=== PATIENT | female | born 1995 | race Caucasian/White ===

== ENCOUNTER 2016-10-12 18:15 | Emergency (ER) | payer OTHER ==
[~2016-10-12] VITALS: Ht 172.7 cm; Wt 54.6 kg
[~2016-10-12 18:15] MED LIST: AMIT25TA9 PO; ASPI81TA28 PO; LISI-789 PO
[2016-10-12 18:25] VITALS: TEMP 36.3; Ht 172.7 cm; Wt 54.6 kg
[2016-10-12 19:06] VITALS: BP 119/86; PULSE 81; O2SAT 97
[2016-10-12] MEDS ORDERED: NAPR-1169 PO (19:14)
--- NOTE | 2016-10-12 19:22 | DIAGNOSTIC IMAGING REPORT ---
HEAD CT NONCONTRAST CT DOSE: 537.48 mGy.cm HISTORY: headache. history of poss cavernous hemangioma TECHNIQUE: Multiaxial CT images of the head were performed without the use of intravenous contrast. Automated exposure control was utilized for this study. Comparison: Brain MRI 05/01/2016. Head CT 05/01/2016. Findings: The paranasal sinuses and mastoid air cells are clear. The calvarium and skull base are intact. The ventricles and sulci are within normal limits. There is no mass, hematoma, midline shift, or acute infarct. Impression: No significant change compared to the prior study. No acute intracranial abnormality. Electronically signed by: Дмитрий Ovalles M.D. 10/12/2016 7:21 PM Dictated Date/Time: 10/12/2016 7:17 PM
--- NOTE | 2016-10-12 21:47 | EMERGENCY ROOM VISIT NOTE ---
History Report prepared by Yuliet: Jessie Martinez Under the Supervision of: Dr. Donato Ayala M.D. First contact with patient: 18:31 Chief Complaint: HEAD PAIN Stated Complaint: LOW HEADACHE,PT HAS CAVERNOMAS,RISK FOR HEMORRHAGE History of Present Illness The patient is a 20 year old female who presents to the Emergency Room with complaints of a resolved headache beginning just [employer]SEM[employer]. The patient states that she has a history of cavernomas. She reports that she has a history of migraines and gets headaches daily but her headache today was different than her previous. She notes that her headache today started in the back of her head and radiated to the top. The patient reports that it was burning and pulsing before she took Naproxen and her headache resolved. She complains of neck stiffness that is now resolved. Pt denies trauma, fevers, chills, visual changes , thunder clap or sudden onset of headache, ear problems/hearing loss, sinus congestion/recent infection, chest pain, breathing difficulties, vomiting, abdominal pain, urinary symptoms, numbness, weakness, lymphadenopathy, rash, or other complaints. 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 She reports that she takes Aspirin for her clotting disorder. 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 A total of ten systems were reviewed and were otherwise negative. Past Medical & Surgical Medical Problems: (1) Cavernoma (2) Double inlet left ventricle (3) Migraines Surgical Problems: (1) S/P Fontan procedure (2) S/P thais-Fontan operation (3) S/P PA (pulmonary artery) banding Family History Diabetes mellitus Social History Smoking Status: Never Smoker Marital Status: single Occupation Status: employed, student Current/Historical Medications Scheduled Amitriptyline Hcl (Elavil), 50 MG PO HS Aspirin (Aspirin Ec), 81 MG PO DAILY Lisinopril (Zestril), 2.5 MG PO DAILY Scheduled PRN Naproxen (Naprosyn), 500 MG PO WK PRN for Pain Allergies Coded Allergies: No Known Allergies (Unverified , 05/01/16) Physical Exam Vital Signs Date Time Temp Pulse Resp B/P (MAP) Pulse Ox O2 Delivery O2 Flow Rate FiO2 10/12/16 19:06 81 18 119/86 97 Room Air 10/12/16 18:25 36.3 91 18 127/8 93 Room Air Physical Exam GENERAL: Awake, alert, well appearing, no distress HENT: Normocephalic, atraumatic. TM's normal. Oropharynx unremarkable. EYES: PERRL. EOMI. Normal conjunctiva. Sclera non-icteric. NECK: Supple. No nuchal rigidity. FROM. No JVD or bruit. RESPIRATORY: CTA CARDIAC: RRR. Holosystolic murmur. ABDOMEN: Soft, non distended. No tenderness to palpation. No rebound or guarding. No masses. RECTAL: Deferred. MUSCULOSKELETAL: Unremarkable. No edema. No discoloration. Gross motor strength symmetric. NEURO: Cranial nerves 2-12 grossly intact. Normal sensorium. No sensory or motor deficits noted. Speech normal. No pronator drift. SKIN: No rash or jaundice noted. LYMPH: No adenopathy. Medical Decision & Procedures ER Provider Diagnostic Interpretation: CT results as stated below per my review and radiologist interpretation HEAD CT NONCONTRAST Comparison: Brain MRI 05/01/2016. Head CT 05/01/2016. Findings: The paranasal sinuses and mastoid air cells are clear. The calvarium and skull base are intact. The ventricles and sulci are within normal limits. There is no mass, hematoma, midline shift, or acute infarct. Impression: No significant change compared to the prior study. No acute intracranial abnormality. Electronically signed by: Дмитрий Ovalles M.D. 10/12/2016 7:21 PM Dictated Date/Time: 10/12/2016 7:17 PM ED Course 1839: The patient was evaluated in room C8. A complete history and physical exam was performed. 1933: I reevaluated and updated the patient. 1944: I reevaluated the patient. Discussed results and discharge instructions: She verbalized understanding and agreement. The patient is ready for discharge. Medical Decision Medication Reconciliation: I attest that I have personally reviewed the patient' s current medication list Blood pressure screening: Patient was found to have normal blood pressure on screening and does not require follow-up. Prior records/ancillary studies reviewed. Triage Nursing notes reviewed and agree them. The patient's history was concerning for headache. Differential diagnosis: Etiologies such as migraine headache, meningitis, sinusitis, CO exposure, ICH, SAH, infection, tumor, headache, sinus thrombosis, arterial dissection, as well as others were entertained. Physical examination findings: As above. Non-focal. ER treatment provided: No medications were given as the patient had resolution of her headache. On reassessment the patient felt better. Diagnostics interpreted by me: Imaging studies: CAT scan as above Clinically the patient is doing very well. Her CT scan does not show any acute abnormalities. As she has no symptoms at this time I do not believe she needs blood work, MRI, or lumbar puncture. She is neurologically intact. I discussed conservative management with the patient and she was in agreement. I gave my usual and customary discussion regarding this issue. By the evaluation outlined above emergent etiologies such as meningitis, sinusitis, CO exposure, ICH, SAH, infection, temporal arteritis, tumor, sinus thrombosis, arterial dissection, as well as others were deemed relatively unlikely. The patient was informed about the findings as listed above. All questions were answered and she was pleased with the treatment. Return instructions were outlined and the patient was discharged in stable condition. Outpatient prescription management: None Referral: The patient was referred back to her primary care physician for follow-up in 2 to 3 days for a recheck of the current condition. Impression Primary Impression: Headache Scribe Attestation The scribe's documentation has been prepared under my direction and personally reviewed by me in its entirety. I confirm that the note above accurately reflects all work, treatment, procedures, and medical decision making performed by me. Departure Information Dispostion Home / Self-Care Referrals No Doctor, Assigned (PCP) Forms HOME CARE DOCUMENTATION FORM, IMPORTANT VISIT INFORMATION, WORK / SCHOOL INSTRUCTIONS Patient Instructions My [facility] Additional Instructions HEADACHE INSTRUCTIONS: Rest today in a quiet, peaceful, dark environment and get a full 8-10 hrs of sleep tonight. Avoid loud noises, smoke/smoking, alcohol, bright lights, stress, or physical exertion today to minimize the chance the headache may return. Continue current medications. Acetaminophen(Tylenol) may be used for fever or pain. Use 1000mg every six hours as needed. Avoid using more than 4000mg in a 24 hour period. Return to the ER for passing out, worsening headache, vision problems, neck stiffness/pain, fevers, vomiting, worsening of your condition, or as needed. Follow up with your primary physician in 2-3 days for a recheck of your current condition.
== END 2016-10-12 19:36 | disposition home or self-care (01) ==
LOC: C.EDB 18:17 → C.EDC 19:36
DX: R51 Headache (principal); Q28.3 Other malformations of cerebral vessels; M41.9 Scoliosis, unspecified; D75.9 Disease of blood and blood-forming organs, unspecified

== ENCOUNTER 2017-08-10 22:44 | Inpatient (IN) | payer BC, OTHER ==
[~2017-08-10] VITALS: Ht 172.7 cm; Wt 54.6 kg
[~2017-08-10 22:44] MED LIST changes: +NAPR-1169 PO
[2017-08-10] MEDS ORDERED: SPIR100T PO (23:23)
[2017-08-10] MEDS ORDERED: LIDOCAINE HCL 2% VISC SOLN 20 ML UDC PO STA (23:27)
[2017-08-10] MEDS ORDERED: ALUMINUM/MAGNESIUM SUSP 30 ML UDC PO STA (23:27)
[2017-08-10] MEDS ORDERED: LIDOCAINE HCL 2% VISC SOLN 20 ML UDC ONE (23:30)
[2017-08-10] MEDS ORDERED: ALUMINUM/MAGNESIUM SUSP 30 ML UDC ONE (23:30)
[2017-08-11] LABS: BASO % 0.2 %; BASO ABS # 0.01 K/uL (0-0.2); EOS % 1.5 %; EOS ABS # 0.09 K/uL (0-0.5); HEMATOCRIT 38.3 % (37-47); HEMOGLOBIN 13.3 g/dL (12.0-16.0); IG# 0.02 K/uL (0.00-0.02); LYMPH % 21.2 %; LYMPH ABS # 1.25 K/uL (1.2-3.4); MEAN CELL VOLUME 87.4 fL (80-100); MEAN CORPUSCULAR HEMOGLOBIN 30.4 pg (25-34); MEAN CORPUSCULAR HGB CONC 34.7 g/dl (32-36); MEAN PLATELET VOLUME 11.2 fL (7.4-10.4); MONO % 8.6 %; MONO ABS # 0.51 K/uL (0.11-0.59); NEUT % 68.2 %; NEUT ABS # 4.02 K/uL (1.4-6.5); PLATELET COUNT 131 K/uL (130-400); RED CELL DISTRIBUTION WIDTH CV 12.9 % (11.5-14.5); RED CELL DISTRIBUTION WIDTH SD 41.6 fL (36.4-46.3)
[2017-08-11 00:19] LABS: ALT/SGPT 30 U/L (12-78); AST/SGOT 17 U/L (15-37); BLOOD UREA NITROGEN 13 mg/dl (7-18); CALCIUM 8.9 mg/dl (8.5-10.1); CARBON DIOXIDE 21 mmol/L (21-32); CREATININE 0.96 mg/dl (0.60-1.20); GLUCOSE 90 mg/dl (70-99); POTASSIUM 3.7 mmol/L (3.5-5.1); SODIUM 137 mmol/L (136-145)
[2017-08-11 00:24] LABS: ALKALINE PHOSPHATASE 53 U/L (45-117); TOTAL PROTEIN 7.6 gm/dl (6.4-8.2)
[2017-08-11] MEDS ORDERED: OPTIRAY 320 IV PRN (01:00)
[2017-08-11] MEDS ORDERED: ALBUT/IPRATROP 3MG/0.5MG NEB 3 ML VIAL INH STA (01:20)
[2017-08-11] MEDS ORDERED: HEPARIN 25000 UNIT/500 ML D5W ONE (02:35)
[2017-08-11] MEDS ORDERED: HEPARIN SOD 5000 UNIT/0.5 ML CARP ONE (02:36)
[2017-08-11] MEDS ORDERED: HEPARIN SOD (PORCINE) 1000 UNIT/ML 10 ML VIAL ONE (02:38)
[2017-08-11 02:59] LABS: INR 1.1 (0.9-1.1); PTT PATIENT 28.2 SECONDS (21.0-31.0)
--- NOTE | 2017-08-11 03:37 | History and Physical ---
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 Patient states that her cough is worse after she lays supine for a long period of time. She denies hemoptysis or otherwise feeling sick. She thought she was coming down with pneumonia because the cough was so bad. Patient states that her throat pain is on the right side, she feels like something is stuck in her throat, she doesn't feel like it's strep, there's no pain when she swallows, there's just a tender lump there. 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 PMHx: Takes ASA daily - doesn't know why exactly, but she says it has to do with her congenital heart defect. PSHx: Multiple heart surgeries. OBGYN: Was told she could not take OCPs because of a clotting disorder, however the doctors never told her what the clotting disorder was. Friend was asked to leave the room, states there's no way she could be , states she has an IUD. 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 Never smoker, never chewed tobacco, no illicit drugs. ROS: recent cyanosis of her lips which has never happened before. See below for pertinent HPI findings on last office visit from cardiology (records were faxed to the ER). Clinic note from 11/19/2016 - [facility]. "Santos comes for cardiology follow up of her congenital heart disease earlier than recommended because of new symptoms. ... Santos has noticed that she becomes more easily out of breath when running up the stairs. She also feels like her nose is stuffy constantly and makes it difficult to breath... after 10 minutes on the elliptical she is tired. She has a chronic cough for 6 months coughing u phlegm is keep clear yellow. (sic). She has noticed her heart racing once in the past few weeks when sitting." 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 (3) Headache (4) Migraines (5) Staring spell Surgical Problems: (1) S/P Fontan procedure (2) S/P thais-Fontan operation (3) S/P PA (pulmonary artery) banding Family History Diabetes mellitus Social History Smoking Status: Never Smoker Smokeless Tobacco Use: No Alcohol Use: none Drug Use: none Marital Status: single Occupational Status: employed, student Immunizations History of Influenza Vaccine: Unknown History of Tetanus Vaccine?: Unknown History of Pneumococcal: Unknown History of Hepatitis B Vaccine: Unknown Allergies Coded Allergies: No Known Allergies (Unverified , 08/10/17) Home Medications Scheduled Amitriptyline Hcl (Elavil), 50 MG PO HS Aspirin (Aspirin Ec), 81 MG PO DAILY Lisinopril (Zestril), 2.5 MG PO DAILY Spironolactone (Aldactone), 100 MG PO DAILY Scheduled PRN Benzonatate (Tessalon Perles), 100 MG PO TID PRN for Cough Guaifenesin-Codeine (Robitussin-Ac Syrup), 5 ML PO HS PRN for Cough Review of Systems Constitutional: No fever, No chills ENT: No hearing loss Respiratory: + cough, + sputum, + shortness of breath, + dyspnea on exertion, No wheezing, No dyspnea at rest Cardiovascular: + chest pain Abdomen: No pain, No nausea, No vomiting, No diarrhea Musculoskeletal: No joint pain Genitourinary - Female: No dysuria Neurologic: No memory loss Integumentary: No rash Physical Exam Vital Signs Date Time Temp Pulse Resp B/P (MAP) Pulse Ox O2 Delivery O2 Flow Rate FiO2 08/11/17 03:10 93 08/11/17 02:20 82 20 128/85 96 Room Air 08/11/17 01:07 82 20 111/84 96 Room Air 08/10/17 23:53 96 Room Air 08/10/17 22:52 36.4 97 18 127/71 Room Air General Appearance: WD/WN, no apparent distress Head: normocephalic Eyes: normal inspection, PERRL ENT: normal ENT inspection Neck: supple, no adenopathy, thyroid normal, + pertinent finding (there is a somewhat tender mass on the right side of the throat. ) Respiratory/Chest: chest non-tender, lungs clear, normal breath sounds, + pertinent finding (When pt takes a deep breath he feels a stitch under the left rib. 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 as tested, no motor/sensory deficits, alert, normal mood/affect, normal reflexes, oriented x 3 Skin: normal color, no rash Diagnostics Laboratory Results Results Past 24 Hours Test 08/10/17 23:50 08/11/17 02:44 Range/Units White Blood Count 5.90 4.8-10.8 K/uL Red Blood Count 4.38 4.2-5.4 M/uL Hemoglobin 13.3 12.0-16.0 g/dL Hematocrit 38.3 37-47 % Mean Corpuscular Volume 87.4 80-100 fL Mean Corpuscular Hemoglobin 30.4 25-34 pg Mean Corpuscular Hemoglobin Concent 34.7 32-36 g/dl Platelet Count 131 130-400 K/uL Mean Platelet Volume 11.2 7.4-10.4 fL Neutrophils (%) (Auto) 68.2 % Lymphocytes (%) (Auto) 21.2 % Monocytes (%) (Auto) 8.6 % Eosinophils (%) (Auto) 1.5 % Basophils (%) (Auto) 0.2 % Neutrophils # (Auto) 4.02 1.4-6.5 K/uL Lymphocytes # (Auto) 1.25 1.2-3.4 K/uL Monocytes # (Auto) 0.51 0.11-0.59 K/uL Eosinophils # (Auto) 0.09 0-0.5 K/uL Basophils # (Auto) 0.01 0-0.2 K/uL RDW Standard Deviation 41.6 36.4-46.3 fL RDW Coefficient of Variation 12.9 11.5-14.5 % Immature Granulocyte % (Auto) 0.3 % Immature Granulocyte # (Auto) 0.02 0.00-0.02 K/uL Prothrombin Time 11.4 9.0-12.0 SECONDS Prothromb Time International Ratio 1.1 0.9-1.1 Activated Partial Thromboplast Time 28.2 21.0-31.0 SECONDS Partial Thromboplastin Ratio 1.1 Bedside D-Dimer > 450 0-450 ng/mlFEU Sodium Level 137 136-145 mmol/L Potassium Level 3.7 3.5-5.1 mmol/L Chloride Level 107 98-107 mmol/L Carbon Dioxide Level 21 21-32 mmol/L Anion Gap 9.0 3-11 mmol/L Blood Urea Nitrogen 13 7-18 mg/dl Creatinine 0.96 0.60-1.20 mg/dl Est Creatinine Clear Calc Drug Dose 71.3 ml/min Estimated GFR () 98.7 Estimated GFR (Non- 85.1 BUN/Creatinine Ratio 13.3 10-20 Random Glucose 90 70-99 mg/dl Calcium Level 8.9 8.5-10.1 mg/dl Total Bilirubin 0.5 0.2-1 mg/dl Direct Bilirubin 0.1 0-0.2 mg/dl Aspartate Amino Transf (AST/SGOT) 17 15-37 U/L Alanine Aminotransferase (ALT/SGPT) 30 12-78 U/L Alkaline Phosphatase 53 45-117 U/L Bedside Troponin I < 0.030 0-0.045 ng/ml Troponin I < 0.015 0-0.045 ng/ml Total Protein 7.6 6.4-8.2 gm/dl Albumin 4.0 3.4-5.0 gm/dl Human Chorionic Gonadotropin, Qual NEG NEG EKG Normal sinus rhythm Rightward axis Nonspecific ST and T wave abnormality Abnormal ECG No previous ECGs available When compared to EKG in November 2016 no significant change was found, there was R axis deviation as well Impression Assessment and Plan Pt is a pleasant 21F with a PMHx of Hypoplastic R Heart Syndrome presents with chest pain and cough and was found to have multiple PEs. Started on a Heparin Drip. No oxygen requirement. Pending US of the UE and LE. Tender Right neck mass suspicious for clot vs Lymph node. Multiple PEs Clinically stable, on room air. Questing whether this is acute or chronic, especially since D-Dimer isn't significantly elevated. Awaiting official CT for PE read from [facility] radiologists. Received Hep bolus in the ER, and will give Heparin Drip. Duplex US of the LE and UE pending. (UE to assess for R sided tender neck mass , per conversation, UE US will look at the IJ vein) Will get US to assess for clot - Loss of laminar flow can cause a clot perhaps? Daily X-rays. Hypoplastic R Heart Syndrome EKG compared with [facility] - I did not appreciate any changes. Trop negative. Pt can be considered to have failed ASA therapy, if ASA was for clot prevention. c/w Lisinopril 2.5mg daily and Spironolactone 100mg daily. (Aldactone may be for Acne tx) Hypercoagulability Unclear if patient was ever diagnosed with a genetic condition, ED has sent hypercoagulability profile. Follow up hypercoag panel results. Mood c/w Amitriptyline. DVT Proph: Heparin as above. Dispo: Admit, Tele Diet: Regular FULL CODE Attending addendum: I have physically seen this patient, have supervised the medical residents activities, and agree with the H&P unless as otherwise noted. Assessment and Plan: Multiple pulmonary emboli-- Continue heparin drip with bolus has begun in the ED. Order upper extremity and lower extremity bilateral venous Dopplers. Hypercoagulable workup Hypoplastic right heart syndrome-- Complete echocardiogram order Coordinate care with [facility]. Advanced Directives Existing Advance Directive: No Existing Living Will: No Existing Power of Order Filler: No Resuscitation Status VTE Prophylaxis Will order VTE Prophylaxis: Yes Social Service Consult None Apply Resident Involvement: Resident Care Provided Care Provided: Adult Hospital Medicine
--- NOTE | 2017-08-11 03:44 | EMERGENCY ROOM VISIT NOTE ---
History First contact with patient: 23:12 Chief Complaint: CHEST PAIN Stated Complaint: CHEST PAIN,DIFFICULTY BREATHING,CHRONIC COUGH Nursing Triage Summary: chest pain and throat pain states it always feel like it does when something "goes down the wrong tube" has had the cough for about a week, but tonight it is really bad History of Present Illness The patient is a 21 year old female who presents to the Emergency Room with complaints of chest pain, shortness of breath, cough and dysphasia for the past few days that is steadily getting worse. Patient states the cough is much worse tonight. 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 Nothing recent. She had an echo December 2016 at [place] [facility] that was unchanged per patient. No prior blood clots in the past. Patient denies recent illness, fevers, productive cough, abdominal pain, nausea , vomiting, diarrhea, neck stiffness, headache. Patient states after eating potatoes tonight it seems like her swallowing got much worse along with her coughing. No IV drug abuse. Review of Systems An 10 system review of systems was completed with positives and pertinent negatives listed in the HPI. 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 (3) Migraines (4) Pulmonary embolism Surgical Problems: (1) S/P Fontan procedure (2) S/P thais-Fontan operation (3) S/P PA (pulmonary artery) banding Family History Diabetes mellitus Social History Smoking Status: Never Smoker Smokeless Tobacco Use: No Drug Use: none Marital Status: single Occupation Status: employed, student Current/Historical Medications Scheduled Amitriptyline Hcl (Elavil), 50 MG PO HS Aspirin (Aspirin Ec), 81 MG PO DAILY Lisinopril (Zestril), 2.5 MG PO DAILY Spironolactone (Aldactone), 100 MG PO DAILY Physical Exam Vital Signs Date Time Temp Pulse Resp B/P (MAP) Pulse Ox O2 Delivery O2 Flow Rate FiO2 08/11/17 03:37 89 23 119/84 96 Room Air 08/11/17 03:10 93 08/11/17 02:20 82 20 128/85 96 Room Air 08/11/17 01:07 82 20 111/84 96 Room Air 08/10/17 23:53 96 Room Air 08/10/17 22:52 36.4 97 18 127/71 Room Air Physical Exam VITALS: Vitals are noted on the nurse's note and reviewed by myself. Vital signs stable. GENERAL: Pleasant name, in no acute distress, nondiaphoretic, well-developed well-nourished. SKIN: The skin was without rashes, erythema, edema, or bruising. There is no tenting of the skin. Capillary reflex less than 2 seconds. HEAD: Normocephalic atraumatic. EARS: External auditory canals clear, tympanic membranes pearly oneil without erythema or effusion bilaterally. EYES: Pupils equal round and reactive to light and accommodation. Conjunctivae without injection, sclerae without icterus. Extraocular movements intact. NOSE: Patent, turbinates without inflammation or discharge. No sinus tenderness. MOUTH: Mucous membranes moist. Pharynx without erythema or exudate. Uvula midline. Airway patent. Tongue does not deviate. NECK: Supple without nuchal rigidity. No lymphadenopathy. No thyromegaly. Cervical spine is nontender. No JVD. HEART: Regular rate and rhythm 2/6 systolic LUNGS: Clear to auscultation bilaterally without wheezes, rales or rhonchi. No retractions or accessory muscle use. ABDOMEN: Positive bowel sounds x 4. Normal tympanic percussion. Soft, nontender, without masses or organomegaly. Ferguson sign negative. No guarding or rebound tenderness. No CVA tenderness MUSCULOSKELETAL: No muscle atrophy, erythema, or edema noted. NEURO: Patient was alert and oriented to person place and time. Normal sensation to light and sharp touch. No focal neurological deficits. Medical Decision & Procedures Laboratory Results 08/10/17 23:50 Red Blood Count 4.38, Mean Corpuscular Volume 87.4, Mean Corpuscular Hemoglobin 30.4, Mean Corpuscular Hemoglobin Concent 34.7, Mean Platelet Volume 11.2, Neutrophils (%) (Auto) 68.2, Lymphocytes (%) (Auto) 21.2, Monocytes (%) (Auto) 8.6, Eosinophils (%) (Auto) 1.5, Basophils (%) (Auto) 0.2, Neutrophils # (Auto) 4.02, Lymphocytes # (Auto) 1.25, Monocytes # (Auto) 0.51, Eosinophils # (Auto) 0.09, Basophils # (Auto) 0.01 08/10/17 23:50 Test 08/10/17 23:50 4/3/18 02:44 White Blood Count 5.90 K/uL (4.8-10.8) Red Blood Count 4.38 M/uL (4.2-5.4) Hemoglobin 13.3 g/dL (12.0-16.0) Hematocrit 38.3 % (37-47) Mean Corpuscular Volume 87.4 fL (80-100) Mean Corpuscular Hemoglobin 30.4 pg (25-34) Mean Corpuscular Hemoglobin Concent 34.7 g/dl (32-36) Platelet Count 131 K/uL (130-400) Mean Platelet Volume 11.2 fL (7.4-10.4) Neutrophils (%) (Auto) 68.2 % Lymphocytes (%) (Auto) 21.2 % Monocytes (%) (Auto) 8.6 % Eosinophils (%) (Auto) 1.5 % Basophils (%) (Auto) 0.2 % Neutrophils # (Auto) 4.02 K/uL (1.4-6.5) Lymphocytes # (Auto) 1.25 K/uL (1.2-3.4) Monocytes # (Auto) 0.51 K/uL (0.11-0.59) Eosinophils # (Auto) 0.09 K/uL (0-0.5) Basophils # (Auto) 0.01 K/uL (0-0.2) RDW Standard Deviation 41.6 fL (36.4-46.3) RDW Coefficient of Variation 12.9 % (11.5-14.5) Immature Granulocyte % (Auto) 0.3 % Immature Granulocyte # (Auto) 0.02 K/uL (0.00-0.02) Prothrombin Time 11.4 SECONDS (9.0-12.0) Prothromb Time International Ratio 1.1 (0.9-1.1) Activated Partial Thromboplast Time 28.2 SECONDS (21.0-31.0) Partial Thromboplastin Ratio 1.1 Bedside D-Dimer > 450 ng/mlFEU (0-450) Anion Gap 9.0 mmol/L (3-11) Est Creatinine Clear Calc Drug Dose 71.3 ml/min Estimated GFR () 98.7 Estimated GFR (Non- 85.1 BUN/Creatinine Ratio 13.3 (10-20) Calcium Level 8.9 mg/dl (8.5-10.1) Total Bilirubin 0.5 mg/dl (0.2-1) Direct Bilirubin 0.1 mg/dl (0-0.2) Aspartate Amino Transf (AST/SGOT) 17 U/L (15-37) Alanine Aminotransferase (ALT/SGPT) 30 U/L (12-78) Alkaline Phosphatase 53 U/L (45-117) Bedside Troponin I < 0.030 ng/ml (0-0.045) Troponin I < 0.015 ng/ml (0-0.045) Total Protein 7.6 gm/dl (6.4-8.2) Albumin 4.0 gm/dl (3.4-5.0) Human Chorionic Gonadotropin, Qual NEG (NEG) Medications Administered Medications (Trade) Dose Ordered Sig/Erika Route Start Time Stop Time Status Last Admin Dose Admin Al Hydroxide/Mg Hydroxide (Maalox Susp) 30 ml STK-MED ONCE .ROUTE 08/10/17 23:30 08/10/17 23:31 DC 08/10/17 23:55 30 ML Lidocaine HCl (Viscous Lidocaine 2% Soln) 20 ml STK-MED ONCE .ROUTE 08/10/17 23:30 08/10/17 23:31 DC 08/10/17 23:56 20 ML Albuterol/ Ipratropium (Duoneb) 3 ml NOW STAT INH 08/11/17 01:20 08/11/17 01:21 DC 08/11/17 01:20 3 ML Heparin Sodium/ Dextrose (Heparin 25,000 Unit/500ml D5W) 25,000 unit STK-MED ONCE .ROUTE 08/11/17 02:35 08/11/17 02:36 DC 08/11/17 03:34 25,000 UNIT Heparin Sodium (Porcine) (Heparin Iv Bolus) 10,000 unit STK-MED ONCE .ROUTE 08/11/17 02:38 08/11/17 02:39 DC 08/11/17 03:35 4,000 UNIT ED Course Prior records/ancillary studies reviewed. Triage Nursing notes reviewed. The patient's history was concerning for chest pain. Differential diagnosis: Etiologies such as complication of chronic heart problem, cardiac ischemia, aortic dissection, pulmonary embolism, pneumonia, pneumothorax, musculoskeletal , infections, pericarditis, myocarditis, esophageal rupture, gastrointestinal, as well as others were entertained. Physical examination: As above. ER treatment provided: GI cocktail, nebulizer On reassessment the patient felt better. Diagnostic interpretation by me: The electrocardiogram was normal sinus, Q waves in the inferior leads, minimal ST depression in the inferior leads, right axis deviation, rate of 88. EKG compared to prior EKG which is obtained from the [facility] with no acute changes noted. Impression normal sinus rhythm with Q waves in inferior leads with ST depression with a right axis deviation interpreted by myself. I obtain the records from [facility] to review the patient's recent echo and EKG. This was added to the patient's chart and given to the admitting hospitalist team. The labs revealed negative troponin. Elevated d-dimer and patient was sent for CTA. Imaging studies: Chest x-ray with no acute consolidation, pneumothorax or free of my interpretation CTA concerning for multiple PE. The radiologist did call me to inform me of this. Consultation: A consultation was placed with the hospitalist, Dr. Servin and resident. The case was discussed and diagnostics were reviewed. The patient was evaluated in the ER for further treatment. HEART SCORE: Hx: high/mod/low suspicion: 0 ECG: ST depression/nonspecific changes/normal: 1 Age: Greater than 65/45-64/less than 45: 0 Risk factors: (Hypertension, hyperlipidemia, diabetes, coronary disease, tobacco use, cocaine use): 0 Troponin: Greater than 2 times normal limits/1-2 times normal limits/normal: 0 Total: 1 Symptoms of DVT 3pt: 0 Alternative diagnoses better explains illness 3pts: 3 Tachycardia greater than 100 1.5 pts 0 Immobilization greater than 3 days or surgery in the previous 4 weeks 1.5 pts: 0 Prior history of DVT or PE 1.5 pts: 0 Presence of hemoptysis 1pt: 0 Presence of malignancy 1pt: 0 (Score greater than 6 is high probability, score 2-6 moderate probability, score less than 2 low probability) Total: 3 Exam and history seem consistent with PE. Patient has extensive heart disease. No prior PE or DVT in the past per patient. Hypercoagulable workup was ordered. Patient was consented to the heparin. She denies any recent bleeding or GI bleeding in the past. She has not had heparin in the past. No recent trauma. Patient understands risks involved such as bleeding, allergic reaction and other worsening conditions from heparin. Patient is agreeable to treatment plan of heparin and admission. I obtain the records from the other facility and reviewed the patient's recent stress echo and EKG. This is given to the admitting team. Patient had an unchanged EKG. She had positive PE on CTA. D- dimer was elevated. Patient was anticoagulated as above. She will be evaluated by medicine. By the evaluation outlined above emergent etiologies such as cardiac ischemia, aortic dissection, pneumonia, pneumothorax, infections, pericarditis, myocarditis, gastrointestinal, as well as others were deemed relatively unlikely. The pt informed about the findings as listed above. All questions were answered and pleased with the treatment. Case reviewed with my attending The chart was completed utilizing [employer] Speech voice recognition software. Grammatical errors, random word insertions, pronoun errors, and incomplete sentences are an occassional consequence of this system due to software limitations, ambient noise, and hardware issues. Any formal questions or concerns about the content, text, or information contained within the body of this dictation should be directly addressed to the physician assistant producer for clarification. Medical Decision As above Medication Reconcilliation Current Medication List: was personally reviewed by me Blood Pressure Screening Patient's blood pressure: Normal blood pressure Impression Primary Impression: Pulmonary embolism Critical Care I have personally spent greater than 30 minutes of critical care time in the direct management of this patient. This includes bedside care, interpretation of diagnostic studies, and testing, discussion with consultants, patient, and family members, and other required patient management activities. This 30 minutes is in excess of all separately billable procedures. Departure Information Dispostion Being Evaluated By Hospitalist Condition FAIR Referrals No Doctor, Assigned (PCP) Patient Instructions My [facility] Problem Qualifiers Primary Impression: Pulmonary embolism Pulmonary embolism type: other Chronicity: acute Acute cor pulmonale presence: without acute cor pulmonale Qualified Codes: I26.99 - Other pulmonary embolism without acute cor pulmonale
[2017-08-11] MEDS ORDERED: MAGNESIUM HYDROXIDE SUSP 30 ML UDC PO PRN (03:45)
[2017-08-11] MEDS ORDERED: ACETAMINOPHEN 325 MG TAB PO PRN (03:45)
[2017-08-11] MEDS ORDERED: ALUMINUM/MAGNESIUM/SIMETH (MAALOX MAX) 30 ML UDC PO PRN (03:45)
[2017-08-11] MEDS ORDERED: NITROGLYCERIN 0.4 MG SL PER TAB CHARGE SL PRN (03:45)
[2017-08-11] MEDS ORDERED: ONDANSETRON INJ 2 MG/ML 2 ML VIAL IV PRN (03:45)
[2017-08-11] MEDS ORDERED: POLYETHYLENE (MIRALAX) 17 GM PACK PO PRN (03:45)
[2017-08-11] MEDS ORDERED: ZOLPIDEM TARTRATE 5 MG TAB PO PRN (03:45)
[2017-08-11 03:59] VITALS: O2SAT 96
[2017-08-11] MEDS ORDERED: HEPARIN 25,000 UNIT/500ML D5W 500 ML IV SCH (04:00)
[2017-08-11 05:30] VITALS: BP 112/75; PULSE 84; TEMP 36.7; Ht 172.7 cm; Wt 54.6 kg
--- NOTE | 2017-08-11 07:08 | DIAGNOSTIC IMAGING REPORT ---
ULTRASOUND BILATERAL LOWER EXTREMITY VENOUS CLINICAL HISTORY: Pulmonary embolus. COMPARISON STUDY: No priors. TECHNIQUE: Real-time, grayscale, and color Doppler sonography of the deep veins of the right and left lower extremity was performed from the inguinal crease to the calf. Compression and augmentation were utilized. FINDINGS: There is no sonographic evidence of deep venous thrombosis identified in the right or left lower extremity. The common femoral, superficial femoral, and popliteal veins are patent and normally compressible bilaterally. The greater saphenous vein and the profunda femoris vein at the junction with the common femoral vein are clear in both legs. The visualized calf veins are patent bilaterally. IMPRESSION: There is no sonographic evidence of deep venous thrombosis identified in the right or left lower extremity. Electronically signed by: Johnny Loco M.D. 08/11/2017 7:06 AM Dictated Date/Time: 08/11/2017 7:06 AM
--- NOTE | 2017-08-11 07:13 | DIAGNOSTIC IMAGING REPORT ---
CHEST 2 VIEWS ROUTINE CLINICAL HISTORY: Atypical chest pain. Prior heart surgery. COMPARISON STUDY: No previous studies for comparison. FINDINGS: There are postsurgical changes of midline sternotomy. The heart is normal in size. There is a suspected atrial occluder device in place. There is no failure. There is no focal pulmonary consolidation. There are no pleural effusions.[ IMPRESSION: Postsurgical change. No acute findings. Electronically signed by: Vicente John M.D. 08/11/2017 7:12 AM Dictated Date/Time: 08/11/2017 7:11 AM
--- NOTE | 2017-08-11 07:14 | DIAGNOSTIC IMAGING REPORT ---
SOFT TISSUE NECK CLINICAL HISTORY: dysphagia COMPARISON STUDY: No previous studies for comparison. FINDINGS: There is straightening of normal cervical lordosis. The retropharyngeal soft tissues are normal. The epiglottis is apposed to the base the tongue. No definite epiglottic abnormalities are visualized. IMPRESSION: No evidence of retropharyngeal soft tissue widening. Electronically signed by: Vicente John M.D. 08/11/2017 7:13 AM Dictated Date/Time: 08/11/2017 7:12 AM
[2017-08-11 07:29] VITALS: BP 120/78; PULSE 86; TEMP 36.7; O2SAT 93
--- NOTE | 2017-08-11 07:40 | DIAGNOSTIC IMAGING REPORT ---
VENOUS DOPPLER UPR EXT BILA CLINICAL HISTORY: 21 years-old Female presenting with pt has PEs. TECHNIQUE: Real-time grayscale and color and spectral Doppler ultrasound imaging of the veins of the bilateral upper extremities was performed. Compression and augmentation were also utilized. COMPARISON: None. FINDINGS: Right: Internal jugular vein: Patent. Subclavian vein: Patent. Axillary vein: Patent. Basilic vein: Patent. Brachial vein: Patent. Cephalic vein: Patent. Radial vein: Patent. Ulnar vein: Patent. Left: Internal jugular vein: Patent. Subclavian vein: Patent. Axillary vein: Patent. Basilic vein: Patent. Brachial vein: Patent. Cephalic vein: Patent. Radial vein: Not visualized. Additionally, the radial artery is also not visualized. Ulnar vein: Patent. Other: None. IMPRESSION: 1. No evidence of deep venous thrombosis. 2. Nonvisualization of the left radial vein. Electronically signed by: Joesph Calixto M.D. 08/11/2017 7:38 AM Dictated Date/Time: 08/11/2017 7:36 AM
--- NOTE | 2017-08-11 07:44 | Family Medicine Progress Note ---
Progress Note Date of Service Aug 11, 2017. Medications Current Inpatient Medications Medications (Trade) Dose Ordered Sig/Erika Route Start Time Stop Time Status Last Admin Dose Admin Ioversol (Optiray 320) 100 ml UD PRN IV 08/11/17 01:00 08/15/17 00:59 Acetaminophen (Tylenol Tab) 650 mg Q4H PRN PO 08/11/17 03:45 09/10/17 03:44 Al Hydrox/Mg Hydrox/Simethicone (Maalox Max Susp) 15 ml Q4H PRN PO 08/11/17 03:45 09/10/17 03:44 Magnesium Hydroxide (Milk Of Magnesia Susp) 30 ml Q12H PRN PO 08/11/17 03:45 09/10/17 03:44 Zolpidem Tartrate (Ambien Tab) 5 mg HSZ PRN PO 08/11/17 03:45 09/10/17 03:44 Ondansetron HCl (Zofran Inj) 4 mg Q6H PRN IV 08/11/17 03:45 09/10/17 03:44 Nitroglycerin (Nitrostat Tab) 0.4 mg UD PRN SL 08/11/17 03:45 09/10/17 03:44 Polyethylene (Miralax Powder Packet) 17 gm DAILY PRN PO 08/11/17 03:45 09/10/17 03:44 Amitriptyline HCl (Elavil Tab) 50 mg HS PO 08/11/17 21:00 09/10/17 20:59 Lisinopril (Zestril Tab) 2.5 mg DAILY PO 08/11/17 09:00 09/10/17 08:59 Spironolactone (Aldactone Tab) 100 mg DAILY PO 08/11/17 09:00 09/10/17 08:59 Heparin Sodium/ Dextrose 500 ml @ 17 mls/hr Q24H IV 08/11/17 04:00 09/10/17 03:59 Objective Vital Signs Date Time Temp Pulse Resp B/P (MAP) Pulse Ox O2 Delivery O2 Flow Rate FiO2 08/11/17 05:30 36.7 84 22 112/75 Room Air 08/11/17 03:59 89 23 119/84 96 08/11/17 03:37 89 23 119/84 96 Room Air 08/11/17 03:10 93 08/11/17 02:20 82 20 128/85 96 Room Air 08/11/17 01:07 82 20 111/84 96 Room Air 08/10/17 23:53 96 Room Air 08/10/17 22:52 36.4 97 18 127/71 Room Air Physical Exam Notes: General Appearance: Awake, alert & oriented, comfortable in general, NAD. CV: +S1S2 RRR, no murmur. No peripheral edema. Pulm: Clear to auscultation throughout. Abdomen: +BS, soft, non-tender, non-distended. Extremities: No pedal edema or calf tenderness. Moving all extremities naturally and easily. Neuro: No gross neuro deficits. Lines: PIV Laboratory Results 08/10/17 23:50 Red Blood Count 4.38, Mean Corpuscular Volume 87.4, Mean Corpuscular Hemoglobin 30.4, Mean Corpuscular Hemoglobin Concent 34.7, Mean Platelet Volume 11.2, Neutrophils (%) (Auto) 68.2, Lymphocytes (%) (Auto) 21.2, Monocytes (%) (Auto) 8.6, Eosinophils (%) (Auto) 1.5, Basophils (%) (Auto) 0.2, Neutrophils # (Auto) 4.02, Lymphocytes # (Auto) 1.25, Monocytes # (Auto) 0.51, Eosinophils # (Auto) 0.09, Basophils # (Auto) 0.01 08/10/17 23:50 Test 08/10/17 23:50 08/11/17 02:44 White Blood Count 5.90 K/uL (4.8-10.8) Red Blood Count 4.38 M/uL (4.2-5.4) Hemoglobin 13.3 g/dL (12.0-16.0) Hematocrit 38.3 % (37-47) Mean Corpuscular Volume 87.4 fL (80-100) Mean Corpuscular Hemoglobin 30.4 pg (25-34) Mean Corpuscular Hemoglobin Concent 34.7 g/dl (32-36) Platelet Count 131 K/uL (130-400) Mean Platelet Volume 11.2 fL (7.4-10.4) Neutrophils (%) (Auto) 68.2 % Lymphocytes (%) (Auto) 21.2 % Monocytes (%) (Auto) 8.6 % Eosinophils (%) (Auto) 1.5 % Basophils (%) (Auto) 0.2 % Neutrophils # (Auto) 4.02 K/uL (1.4-6.5) Lymphocytes # (Auto) 1.25 K/uL (1.2-3.4) Monocytes # (Auto) 0.51 K/uL (0.11-0.59) Eosinophils # (Auto) 0.09 K/uL (0-0.5) Basophils # (Auto) 0.01 K/uL (0-0.2) RDW Standard Deviation 41.6 fL (36.4-46.3) RDW Coefficient of Variation 12.9 % (11.5-14.5) Immature Granulocyte % (Auto) 0.3 % Immature Granulocyte # (Auto) 0.02 K/uL (0.00-0.02) Prothrombin Time 11.4 SECONDS (9.0-12.0) Prothromb Time International Ratio 1.1 (0.9-1.1) Activated Partial Thromboplast Time 28.2 SECONDS (21.0-31.0) Partial Thromboplastin Ratio 1.1 Bedside D-Dimer > 450 ng/mlFEU (0-450) Anion Gap 9.0 mmol/L (3-11) Est Creatinine Clear Calc Drug Dose 71.3 ml/min Estimated GFR () 98.7 Estimated GFR (Non- 85.1 BUN/Creatinine Ratio 13.3 (10-20) Calcium Level 8.9 mg/dl (8.5-10.1) Total Bilirubin 0.5 mg/dl (0.2-1) Direct Bilirubin 0.1 mg/dl (0-0.2) Aspartate Amino Transf (AST/SGOT) 17 U/L (15-37) Alanine Aminotransferase (ALT/SGPT) 30 U/L (12-78) Alkaline Phosphatase 53 U/L (45-117) Bedside Troponin I < 0.030 ng/ml (0-0.045) Troponin I < 0.015 ng/ml (0-0.045) Total Protein 7.6 gm/dl (6.4-8.2) Albumin 4.0 gm/dl (3.4-5.0) Human Chorionic Gonadotropin, Qual NEG (NEG) Assessment and Plan IN PROGRESS 21 yo female admitted on early [id number] for cough and suspicion for PE. PMH: Hypoplastic right heart syndrome, idiopathic scoliosis, cavernous malformation of the brain, feet venous stasis. PSH: Multiple cardiac surgeries. Cough: Noted for about a week prior to admit, worse in prior 48 hours. No known fevers or other infectious symptoms. CXR clear. Positive D-dimer. CTA read overnight as multiple PE. CTA re-read by [facility] radiologists in the morning as no PE (with prior concern being artifactual in setting of complex congenital heart disease s/p repair. Doppler u/s of both upper and lower extremities noted no evidence of clot. Normal SpO2 on room air, speaking comfortably, but has ongoing dry cough. - Multiple coagulation studies still pending from admit. Right neck pain / dysphagia: Onset within 24 hours of admit, new symptom for patient. Denies neck stiffness or difficulty speaking. Still able to tolerate own secretions. Denies sore throat. Neck soft tissue u/s was unremarkable. Hypoplastic right heart syndrome: No current c/o chest or extremity pains. No SOB. Positive cough as noted above. TnI negative. EKG is NSR 88 with non- specific ST-T wave changes, similar to those in accompanying paper records. See those records for recent cardiology recommendations. - Currently on home lisinopril 2.5 mg daily and spironolactone 100 mg daily. Depression: On home amitriptyline 25 mg daily. Code status: Full code Diet: Regular DVT prophy: SCD's. PT/OT: Deferred. Disbo: Admit to telemetry Resident Tracking Resident Involvement: Resident Care Provided Care Provided: Adult Hospital Medicine (inpatient)
[2017-08-11] MEDS ORDERED: COUGH DROP (SUGAR FREE) LOZ 24 LOZ/1 BOX LOZ ONE (07:45)
--- NOTE | 2017-08-11 08:20 | DIAGNOSTIC IMAGING REPORT ---
(CHEST FOR PE) ANGIO WITH CLINICAL HISTORY: 21 years-old Female presenting with ^cp, dysphagia, cough, clinical concern for pulmonary embolus, history of hypoplastic heart syndrome status post repair. TECHNIQUE: Multidetector CT angiography of the chest was performed after administration of intravenous contrast. 3-D volumetric and/or maximum intensity projection (MIP) images were subsequently reconstructed for review. IV contrast: 84 mL of Optiray 320. A dose lowering technique was used consistent with the principles of ALARA (as low as reasonably achievable). COMPARISON: Chest x-ray performed the previous day. CT DOSE (mGy.cm): The estimated cumulative dose is 194.17 mGy.cm. 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 Pulmonary vasculature: The study is adequate for assessment of the pulmonary vascular tree. Pulmonary arterial blood supply via the superior vena cava, which is in direct continuity with the IVC. This likely implies a prior Fontan procedure. Normal opacification of the right pulmonary artery and its branch vessels of the right lung. There is a transient interruption of opacified contrast in the right ventral conduit and into the left pulmonary artery. This accounts for the apparent diminutive caliber of the left pulmonary artery and the more distal pseudofilling defects. These are felt to be artifactual. No convincing evidence of acute pulmonary emboli. Single ventricle noted though tricuspid and mitral valves noted. No intracardiac filling defect. Patent foramen ovale with residual right atrium. No reflux of contrast into the hepatic veins. Remaining chest: On soft tissue windows, normal thyroid and thoracic inlet. No axillary, supraclavicular, hilar, or mediastinal lymphadenopathy. Normal aorta. Normal heart size. No pericardial or pleural effusion. Prominent spleen. On lung windows, no focal infiltrate or nodule. Airways patent. On bone windows, well-healed median sternotomy. IMPRESSION: 1. Apparent defects in the left pulmonary artery and more distal arteries of the left lung. 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 Direct anastomosis of the right and left pulmonary arteries on to the SVC. 2. No convincing evidence of acute intrathoracic pathology. 3. Possible splenomegaly. These findings were discussed with physician anatomic pathology assistant Rogers by Dr. Calixto on 08/11/2017 8:15 AM. Electronically signed by: Joesph Calixto M.D. 08/11/2017 8:18 AM Dictated Date/Time: 08/11/2017 7:20 AM
[2017-08-11] MEDS ORDERED: LISINOPRIL 2.5 MG TAB PO SCH (09:00)
[2017-08-11] MEDS ORDERED: SPIRONOLACTONE 100 MG TAB PO SCH (09:00)
[2017-08-11 10:49] LABS: PTT PATIENT 29.1 SECONDS (21.0-31.0)
[2017-08-11 11:36] VITALS: BP 92/57; PULSE 80; TEMP 36.7; O2SAT 96
[2017-08-11 15:47] VITALS: BP 103/66; PULSE 83; TEMP 36.7; O2SAT 95
[2017-08-11] MEDS ORDERED: GUAISYP5 PO (16:31)
--- NOTE | 2017-08-11 16:42 | Discharge Instructions ---
Discharge Instructions Date of Service Aug 11, 2017. Admission Reason for Admission: Pulmonary Embolism Discharge Discharge Diagnosis / Problem: Cough Discharge Goals Goal(s): Improve disease control Activity Recommendations Activity Limitations: resume your previous activity . Instructions / Follow-Up Instructions / Follow-Up You were initially admitted for evaluation of possible pulmonary embolisms (PE) that the overnight radiologists noted on the CT scan of your chest. When the radiologists at [facility] read your CT scan, they did not see any of these PE's, instead stated that they saw some of the effects of your prior heart surgeries. Therefore, we returned to an evaluation of what may be causing your cough for the past week or so. Most likely, it is caused by a respiratory infection (such as bronchitis or a common cold). Other possibilities include your lisinopril (an CHINO-inhibitor) or things like acid reflux or post-nasal drip. Regarding the very new feeling of something getting stuck in your throat , most likely that is some throat irritation or a swollen lymph node that should self-resolve in the next few days. Things to keep track of going forward: - You were prescribed two medications: (1) Tessalon, a non-narcotic cough suppressant and (2) Robitussin AC, a narcotic cough suppressant for nighttime use. Both help treat the symptom of cough but do not fix any underlying cause. - It remains possible that you may need to stop taking the lisinopril if your cough persists. This is something you should discuss both with your primary care doctor as well as your cardiologists. - Regarding the feeling of something getting stuck in your throat, that sensation should not worsen at any point, but instead should only continue to improve as the cough resolves. If you notice any increased pain in the area, feeling of swelling, any changes in your voice or actual inability to swallow properly, these are all things you should be seen in an emergency department for that same day. - A variety of lab tests are still pending regarding your possibly being prone to blood clots (as part of that initial PE workup). Those results can be obtained from medical records, depending on where you have your follow up care. Overall, please follow up both with your primary care provider as well as your education program associate for close post-hospital care, ideally within the next week. Go to the emergency department for any of the urgent issues as discussed above, for any new fast heart rate, shortness of breath, chest pain, or other emergent concerns. Current Hospital Diet Patient's current hospital diet: Regular Diet Discharge Diet Recommended Diet: Regular Diet Pending Studies Studies pending at discharge: yes List of pending studies: Multiple anticoagulation studies. Medical Emergencies . Who to Call and When: Medical Emergencies: If at any time you feel your situation is an emergency, please call 911 immediately. . Non-Emergent Contact Non-Emergency issues call your: Primary Care Provider, Feeder [facility]ender . . "Provider Documentation" section prepared by uJstice Branham. .
--- NOTE | 2017-08-11 17:01 | Discharge Summary ---
Discharge Summary Date of Service Aug 11, 2017. Discharge Summary Admission Date: Aug 11, 2017 at 03:43 Discharge Date: Aug 11, 2017 Discharge Disposition: Home Principal Diagnosis: Cough Procedures: 10Aug2017 - CHEST 2 VIEWS ROUTINE IMPRESSION: Postsurgical change. No acute findings. 10Aug2017 - SOFT TISSUE NECK X-ray IMPRESSION: No evidence of retropharyngeal soft tissue widening. 11Aug2017 - (CHEST FOR PE) ANGIO WITH Contrast IMPRESSION: 1. Apparent defects in the left pulmonary artery and more distal arteries of the left lung. 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 Direct anastomosis of the right and left pulmonary arteries on to the SVC. 2. No convincing evidence of acute intrathoracic pathology. 3. Possible splenomegaly. 11Aug2017 - ULTRASOUND BILATERAL LOWER EXTREMITY VENOUS IMPRESSION: There is no sonographic evidence of deep venous thrombosis identified in the right or left lower extremity. 11Aug2017 - VENOUS DOPPLER UPR EXT BILA IMPRESSION: 1. No evidence of deep venous thrombosis. 2. Nonvisualization of the left radial vein. Consultations: None. Medication Reconciliation New Medications: Benzonatate (Tessalon Perles) 100 Mg Cap 100 MG PO TID PRN for Cough for 10 Days, #30 CAP Guaifenesin-Codeine (Robitussin-Ac Syrup) 1 Syp Syp 5 ML PO HS PRN for Cough for 8 Days, #30 ML Continued Medications: Amitriptyline Hcl (Elavil) 25 Mg Tab 50 MG PO HS 2 TABLET DOSE. Aspirin (Aspirin Ec) 81 Mg Tab 81 MG PO DAILY Lisinopril (Zestril) 2.5 Mg Tab 2.5 MG PO DAILY Spironolactone (Aldactone) 100 Mg Tab 100 MG PO DAILY, TAB Discharge Exam General Appearance: Awake, alert & oriented, comfortable in general, speaking clearly in full sentences, has an ongoing dry cough, NAD. Neck/Throat: No appreciable masses or lesions. Non-tender exam. Full, easy ROM. Clear posterior pharynx. CV: +S1S2 RRR, no murmur. No peripheral edema. Pulm: Clear to auscultation throughout. Abdomen: +BS, soft, non-tender, non-distended. Extremities: No pedal edema or calf tenderness. Moving all extremities naturally and easily. Neuro: No gross neuro deficits. 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 Patient states that her cough is worse after she lays supine for a long period of time. She denies hemoptysis or otherwise feeling sick. She thought she was coming down with pneumonia because the cough was so bad. Patient states that her throat pain is on the right side, she feels like something is stuck in her throat, she doesn't feel like it's strep, there's no pain when she swallows, there's just a tender lump there. 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 Discharge summary on 11Aug2017 afternoon 21 yo female admitted on early 11Aug2017 for cough and suspicion for PE. PMH: Hypoplastic right heart syndrome, idiopathic scoliosis, cavernous malformation of the brain, feet venous stasis. PSH: Multiple cardiac surgeries. Cough: Noted for about a week prior to admit, worse in prior 48 hours. No known fevers or other infectious symptoms. CXR clear. Positive D-dimer. CTA read overnight as multiple PE. CTA re-read by [facility] radiologists in the morning as no PE (with prior concern being artifactual in setting of complex congenital heart disease s/p repair. Doppler u/s of both upper and lower extremities noted no evidence of clot. Normal SpO2 on room air, speaking comfortably, but has ongoing dry cough. - Exact cause of this week-long cough is unclear. Leading ddx is a URI, bronchitis, GERD, or post-nasal drip. The above testing is reassuring against other more serious life/organ threats. Other possibility is an CHINO-I related cough. Discussed all the same at length with patient (and her parents at bedside). Rx'ed tessalon prn and Robitussin AC prn for the cough symptom itself. Recommended close f/u with a PCM within the next week for re- evaluation and symptom monitoring. She is welcome to follow up in our clinic with Dr. Bustillos on at 2:10 PM. Parents state they are thinking about possible follow up with PCM out of town as well. - Did recommend continued close follow up with her pharmacy technologist as well, particularly on discussion if she were to need to switch off of her CHINO-I. - Multiple coagulation studies still pending from admit. Right neck pain / dysphagia: Onset within 24 hours of admit, new symptom for patient. Denies neck stiffness or difficulty speaking. Still able to tolerate own secretions. Denies sore throat. Neck soft tissue x-ray was unremarkable, as were the cuts imaging her neck on her CT chest. No palpable masses. Discussed the same with patient. Exact source of her mild dysphagia feeling is unclear, but most likely is small adenopathy causing some local swelling. Its acute nature makes exact determination difficult, so recommended close f/u for the same, along with emergency re-evaluation precautions. Hypoplastic right heart syndrome: No current c/o chest or extremity pains. No SOB. Positive cough as noted above. TnI negative. EKG is NSR 88 with non- specific ST-T wave changes, similar to those in accompanying paper records. See those records for recent cardiology recommendations. - Currently on home lisinopril 2.5 mg daily and spironolactone 100 mg daily. No acute changes as inpatient. Mood issue: On home amitriptyline 25 mg daily. No acute changes as inpatient. Resident Physician Supervision Note: I interviewed and examined the patient. Discussed with Dr. Branham and agree with findings and plan as documented in the note. Any exceptions or clarifications are listed here: None Documented By: Aristeo Tang feeling about the same - side of neck hurts, cough. no sob vitals noted nad breathing unlabored, neck supple no crepitis slight nonspecific fullness R sided CT chest reviewed personally as well as w R1 as well as with pt/family abnormal chest CT -reviewing films, local radiology interpretation of no PE appears c/w what i'm seeing, although obviously radiology's read will be far more credible - further however, is lack of tachycardia/hypoxia, no DVT, clinical syndrome uncharacteristic of PE, no downstream pulmonary infarct (which, if extensive multiple PE would be expected at least to a degree) and no sx of R heart strain (which would be expected with multiple b/l PE as well) cough/neck discomfort -no s/s catastrophic illness - agree w Dr Branham that URI is most likely dx, no crepitis/no findings on neck imaging (including cuts on CT chest that viewed neck) showing worrisome pathology -close outpt f/u until improved set up w local PCP if she stays, to see PCP at home if she goes home for now stable for discharge Total Time Spent: Greater than 30 minutes This includes examination of the patient, discharge planning, medication reconciliation, and communication with other providers. Discharge Instructions Please refer to the electronic Patient Visit Report (Discharge Instructions) for additional information. Follow-Up - She is welcome to follow up in the [facility] clinic with Dr. Bustillos on , 13 August, at 2:10 pm. - Otherwise recommended follow-up with her out-of-town PCM. - Also recommended follow-up with her pharmacy technologist. Additional Copies To Hailee Bustillos MD Resident Tracking Resident Involvement: Resident Care Provided Care Provided: Adult Hospital Medicine (inpatient)
[2017-08-11] MEDS ORDERED: BENZ100C84 PO (17:07)
[2017-08-11 17:30] VITALS: BP 103/66; PULSE 83; TEMP 36.7; O2SAT 95
[2017-08-11] MEDS ORDERED: AMITRIPTYLINE HCL 25 MG TAB PO SCH (21:00)
== END 2017-08-11 17:50 | disposition home or self-care (01) | DRG 153 ==
LOC: C.EDB 22:46 → C.2T 08-11 03:43 → ENRESERV 08-11 03:52
PROVIDERS: ADMIT Family Medicine; ATTEND Family Medicine
DX: J06.9 Acute upper respiratory infection, unspecified (principal); Q04.8 Other specified congenital malformations of brain; Z87.74 Personal history of (corrected) congenital malformations of heart and circulatory system; R13.10 Dysphagia, unspecified; R59.0 Localized enlarged lymph nodes; M54.2 Cervicalgia; G43.909 Migraine, unspecified, not intractable, without status migrainosus; F39 Unspecified mood [affective] disorder; Z51.81 Encounter for therapeutic drug level monitoring; Z79.899 Other long term (current) drug therapy; Z79.82 Long term (current) use of aspirin; Z98.890 Other specified postprocedural states; Z83.3 Family history of diabetes mellitus